=== PATIENT | female | born 1965 | race Caucasian/White ===

== ENCOUNTER 2016-12-09 14:21 | Emergency (ER) | payer MEDICARE, OTHER ==
[~2016-12-09] VITALS: Ht 160 cm; Wt 65.5 kg
[~2016-12-09 14:21] MED LIST: ALBU8.5H3 INH; CIPR500T4 PO; DICL50TA11 PO; HYDR-3498 PO; IBUP-1542 PO; IBUP800T25 PO
[2016-12-09 14:38] VITALS: Ht 160 cm; Wt 65.5 kg
[2016-12-09] MEDS ORDERED: HYDROCODONE/APAP (5/325) TAB PO ONE (19:00)
--- NOTE | 2016-12-09 19:23 | RADRPT ---
PROCEDURE: CT facial bones CLINICAL INDICATION: Osteomyelitis, pain TECHNIQUE: A CT of the facial bones was performed on a multidetector CT scanner utilizing thin axi al images. Sagittal and coronal reconstructions were provided. The CTDIvol is mGy and the DLP is 688 mGy-cm. One or more of the following dose reduction techniques were used: Automated exposure co ntrol, Adjustment of the mA and/or kV according to patient size, and/or use of iterative reconstruct ion technique. COMPARISON: Facial CT 12/16/15 FINDINGS: The nasal bones, zygomatic arches and pterygoid plates are intact. The mandible is intact. Degenera tive changes to the temporomandibular joints. The temporomandibular joints, however, remain in anato fam alignment on the closed mouth view. The orbits are intact. The globes are grossly intact. Bila teral maxillary sinus mucosal thickening with an inferior right maxillary sinus retention cyst. No l ayering paranasal sinus fluid is seen. Streak artifact from dental hardware obscures detailed evalu ation of the oral cavity. IMPRESSION: No acute facial bone fracture or aggressive erosive changes are identified. 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 RPTAT: AA .Fahad Nunez MD, Date Time Electronically viewed and signed by .Fahad Nunez MD, on 12/09/2016 19:23 .T/
[2016-12-09 19:34] LABS: BASOPHILS % 0.6 % (0.0-2.0); EOSINOPHILS # 0.1 10^3/ul (0.0-0.5); EOSINOPHILS % 2.8 % (0.0-7.0); HEMATOCRIT 40.8 % (37.0-47.0); LYMPHOCYTES # 1.7 10^3/ul (0.8-2.9); LYMPHOCYTES % 32.5 % (15.0-51.0); MEAN CORPUSCULAR HEMOGLOBIN 30.8 pg (29.0-33.0); MEAN CORPUSCULAR HGB CONC 34.3 g/dl (32.0-37.0); MEAN CORPUSCULAR VOLUME 89.8 fl (82.0-101.0); MEAN PLATELET VOLUME 9.2 fl (7.4-10.4); MONOCYTE # 0.4 10^3/ul (0.3-0.9); MONOCYTES % 8.3 % (0.0-11.0); NEUTROPHIL # 2.9 10^3/ul (1.6-7.5); NEUTROPHILS % 55.8 % (39.0-77.0); PLATELET COUNT 192 10^3/UL (140-440); RED BLOOD COUNT 4.54 10^6/ul (4.20-5.40); RED CELL DISTRIBUTION WIDTH 13.2 % (11.5-14.5); UNCORRECTED WBC 5.2 10^3/ul (4.8-10.8); WHITE BLOOD COUNT 5.2 10^3/ul (4.8-10.8)
[2016-12-09 19:35] LABS: CONDITION 1
[2016-12-09] MEDS ORDERED: IBUP-1542 PO (20:00)
[2016-12-09] MEDS ORDERED: HYDR-906 PO (20:00)
--- NOTE | 2016-12-09 20:06 | ERD ---
ER Documentation Chief Complaint Date/Time DATE: 12/09/16 TIME: 20:03 Chief Complaint FACIAL PAIN,RIGHT EYE BLURRY VISION HPI This is a 51-year-old female presents to the ER with right-sided jaw pain and facial pain. Patient states that pain began today. 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 He shouldn't went to her dentist today because she has similar symptoms as in the past, her dentist told her to come to the ER for CT scan because he couldn' t visualized the entire jaw on the x-ray. She does not have any fevers or chills. Denies any facial numbness or tingling. ROS 12 point review of systems was done, all negative except per HPI. Medications Home Meds Active Scripts Hydrocodone/Acetaminophen ([place] 5-325 Tablet) 1 Each Tablet, 1 TAB PO Q6H Y for PAIN, #7 TAB Prov:CORA MENESES 12/09/16 Ibuprofen* (Motrin*) 600 Mg Tab, 600 MG PO Q6, #30 TAB Prov:CORA MENESES 12/09/16 Ibuprofen* (Motrin*) 800 Mg Tab, 800 MG PO Q6, #30 TAB Prov:GONZALO RAMEY NP 12/16/15 Hydrocodone Bit-Acetaminophen* ([place]*) 5-325 Mg Tab, 1 TAB PO Q6 Y for PAIN, # 7 TAB Prov:GONZALO RAMEY NP 12/16/15 Diclofenac Sodium* (Diclofenac Sodium*) 50 Mg Tablet.dr, 50 MG PO TID, #10 TAB Prov:ZEYAD KAM DO 10/03/15 Reported Medications Ciprofloxacin Hcl* (Ciprofloxacin Hcl*) 500 Mg Tablet, 500 MG PO BID, TAB 09/10/14 Ibuprofen* (Motrin*) 600 Mg Tab, 600 MG PO Q6H Y for PAIN, TAB 09/10/14 Albuterol Sulfate* (Proair HFA*) 8.5 Gm Hfa.aer.ad, 2 PUFF INH Q4H Y for WHEEZING AND SOB, INH 09/10/14 Allergies Allergies: Coded Allergies: cefotetan (Verified Allergy, Severe, SWELLING, 10/03/15) dextrose (Verified Allergy, Severe, SWELLING, 10/03/15) morphine (Verified Allergy, Severe, RASH, 10/03/15) PMhx/Soc History of Surgery: Yes (HYSTERECTOMY, FEMUR, JAW, TOE) Anesthesia Reaction: No Hx Neurological Disorder: No Hx Respiratory Disorders: No Hx Cardiac Disorders: No Hx Psychiatric Problems: No Hx Miscellaneous Medical Probl: Yes (DM) Hx Alcohol Use: No Hx Substance Use: No Hx Tobacco Use: No Physical Exam Vitals Vital Signs Date Time Temp Pulse Resp B/P Pulse Ox O2 Delivery O2 Flow Rate FiO2 12/09/16 14:38 98.1 86 18 117/72 98 Physical Exam GENERAL: The patient is well developed and appropriate for usual state of health , in no apparent distress. HEENT: Atraumatic. She is tender to palpation on the right upper jaw and the right maxillary area. She wears at top denture secondary to previous surgery. CHEST: Clear to auscultation bilaterally. There are no rales, wheezes or rhonchi. HEART: Regular rate and rhythm. No murmurs, clicks, rubs or gallops. NEURO: Alert and oriented. Result Diagram: 12/09/16 1900 Results 24 hrs Laboratory Tests Test 12/09/16 19:00 Basophils # 0.010^3/ul Basophils % 0.6% C-Reactive Protein < 0.5mg/dl Eosinophils # 0.110^3/ul Eosinophils % 2.8% Hematocrit 40.8% Hemoglobin 14.0g/dl Lymphocytes # 1.710^3/ul Lymphocytes % 32.5% Mean Corpuscular Hemoglobin 30.8pg Mean Corpuscular Hemoglobin Concent 34.3g/dl Mean Corpuscular Volume 89.8fl Mean Platelet Volume 9.2fl Monocytes # 0.410^3/ul Monocytes % 8.3% Neutrophils # 2.910^3/ul Neutrophils % 55.8% Nucleated Red Blood Cells # 0.010^3/ul Nucleated Red Blood Cells % 0.0/100WBC Platelet Count 16930^3/UL Red Blood Count 4.5410^6/ul Red Cell Distribution Width 13.2% White Blood Count 5.210^3/ul Current Medications Medications (Trade) Dose Ordered Sig/Pantera Route PRN Reason Start Time Stop Time Status Last Admin Dose Admin Acetaminophen/ Hydrocodone Bitart ([place] (5/325)) 1 tab ONCE ONCE PO 12/09/16 19:00 12/09/16 19:01 DC 12/09/16 18:52 Procedures/MDM This is a 51-year-old female presents to the ER with jaw pain. At this time is no evidence of osteomyelitis on CT scan, I am still awaiting ESR. CRP was normal. Doubt infectious etiology. Patient's well-appearing and afebrile. She' ll be sent home with [place]. She needs to follow-up with her primary care doctor within 1-2 days return to ER sooner symptoms worsen. My medical decision making was shared with the patient she understands and agrees with plan. Departure Diagnosis: Primary Impression: Jaw pain Condition: Stable Patient Instructions: Tmj Syndrome Additional Instructions: Llame al doctor MAANA y roseanne rm JEREMIAH PARA DENTRO DE 1-2 MANZO.Dgale a la secretaria que nosotros le instruimos hacer esta jeremiah.Avise o llame si flower condicin se empeora antes de la jeremiah. Regresa aqui si peor o no mejor. CORA MENESES Dec 09, 2016 20:06
--- NOTE | 2016-12-09 21:06 | QN ---
Documentation Comment Patient signed out to me by . Kristie MORALES, pending ESR results, this was reviewed, it was normal, patient was given copies of laboratory tests results, was given CT scan report, patient was discharged according to Kristie MORALES' s instructions, patient is advised to follow with primary care doctor as per instruction. Patient is stable upon discharge SIERRA RANDOLPH NP Dec 09, 2016 21:06
[2016-12-09 21:15] VITALS: BP 130/65; PULSE 69; RESP 18; TEMP 98.1
== END 2016-12-09 21:15 | disposition home or self-care (01) ==
LOC: FTE 14:21
DX: R68.84 Jaw pain (principal); E11.9 Type 2 diabetes mellitus without complications
CPT/HCPCS: 36415; 70486; 85025; 85651; 86140